=== PATIENT | female | born 2000 | race Caucasian/White ===

== ENCOUNTER 2020-11-13 19:03 | Emergency (ER) | payer OTHER, BC ==
[~2020-11-13] VITALS: Ht 154.9 cm; Wt 55.0 kg
[2020-11-13 19:10] VITALS: BP 111/74
[2020-11-13] MEDS ORDERED: LIDOCAINE 1%, 10ML INFIL ONE (19:30)
--- NOTE | 2020-11-13 21:03 | NUR ---
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
[2020-11-13] MEDS ORDERED: LIDOCAINE-MPF 1%, 5ML ONE (21:17)
[2020-11-13] MEDS ORDERED: NEOSPORIN OINT. PKT 1 PACKET ONE (21:17)
--- NOTE | 2020-11-13 21:24 | NUR ---
Pt states she was bit by a dog while in her yard. Pt presents with two deep bites to left thigh. CMS intact.
== END 2020-11-13 22:53 | disposition home or self-care (01) ==
LOC: ED 21:41
DX: S71.152A Open bite, left thigh, initial encounter (principal); W54.0XXA Bitten by dog, initial encounter; Y93.89 Activity, other specified; Y92.410 Unspecified street and highway as the place of occurrence of the external cause; Y99.8 Other external cause status
CPT/HCPCS: 12031; 99285